=== PATIENT | male | born 1955 | race Caucasian/White ===

== ENCOUNTER 2016-10-08 23:41 | Emergency (ER) | payer OTHER ==
[~2016-10-08] VITALS: Ht 175.3 cm; Wt 76.2 kg
[2016-10-09] MEDS ORDERED: NEO-BACIT-POLY3.5 GM OP (00:31)
[2016-10-09] MEDS ORDERED: NEOMYCIN-POLY-7.5 ML OP (01:34)
[2016-10-09 01:43] VITALS: BP 110/71
== END 2016-10-09 01:50 | disposition home or self-care (01) ==
LOC: ER 23:41
DX: T15.91XA Foreign body on external eye, part unspecified, right eye, initial encounter (principal); F17.210 Nicotine dependence, cigarettes, uncomplicated

== ENCOUNTER → 2017-07-26 | Outpatient (CLI) | payer OTHER ==
[~2017-07-26] MED LIST: NEO-BACIT-POLY3.5 GM OP; NEOMYCIN-POLY-7.5 ML OP
--- NOTE | ~2017-07-26 | SLE ---
[facility] [place] [address] POLYSOMNOGRAPHY STUDY Name: MARLENY MURPHY Room #: REG [facility] M..#: [id number] Admission: 07/26/17 Attend Phys: Victorino Chacon MD Discharge: Date of : 59 Report #: [id number] THIS REPORT FOR: //name// CC: Vanessa Chacon MD HISTORY: The patient with history of obstructive sleep apnea based on an AccuSom testing device in October 2016. He did not start on the CPAP, but did use a renew sleep SomnoDent Flex model, received device on 01/29/2017, wears a device 90% of the time for 6-8 hours and his related that he did better, could do some heavy breathing. Between 04/22 and 04/24, he did a follow up study using the NovaSom device. On nights 1 and 3, he wore his device, on night 2, he did not. For all 3 nights, sleep apnea results and snoring results where worsened. There were in test #1. COMMENTS: BASELINE STUDY: Total sleep time 295 minutes, sleep efficiency 62%. REM latency 106 minutes. SLEEP STAGE: 1-28%, 2-66%, 3-1%, REM-5%. Central apnea 17, mixed apnea 6, obstructive apnea 59, hypopnea 19. Apnea-hypopnea index of 20.5 events per sleep hour. Non-REM AHI 20.3, REM AHI 25.7. Respiratory effort related arousal 5 events per hour. Supine AHI 67, left lateral 7, right lateral 10 events per sleep hour. Periodic limb movement with arousal index of 9 events per sleep hour. Low oxygen saturation 74%, spending 6% of recording time less than 90%. IMPRESSION: 1. Obstructive sleep apnea/hypopnea, G47.33. 2. Periodic limb movement with arousal index of 9 events per sleep hour. 3. No significant arrhythmia noted. 4. The majority of the events occurred after 4:00 a.m. and mainly in supine sleep. SUGGESTIONS: 1. In addition to specific therapy, the patient should be cautioned regarding driving or operating dangerous machinery unless fully alert. 2. The patient will be cautioned regarding the use of respiratory depressants. 3. Oral appliance or appropriate surgery may be considered with appropriate followup. 4. The usual sleep apnea suggestions are recommended. 5. Further evaluation regarding restless legs and periodic limb movement disorder. 6. May consider a CPAP titration night, a night on his oral appliance in the [facility] [address] [place] [address] POLYSOMNOGRAPHY STUDY Name: MARLENY MURPHY Room #: REG [facility].#: [id number] Admission: 07/26/17 Attend Phys: Victorino Chacon MD Discharge: Date of : 59 Report #: [id number] sleep lab, and an auto titrating CPAP. 7. If signs and symptoms not improved with therapy, further evaluation is recommended. Please do not hesitate to contact me if I may be of further assistance. By: [id number] Ravi Pham MD /nt
== END ==
LOC: SLEEPLAB 11:16
DX: G47.33 Obstructive sleep apnea (adult) (pediatric) (principal)